=== PATIENT | female | born 1975 | race Caucasian/White ===

== ENCOUNTER 2019-01-28 08:07 | Observation (INO) | payer MEDICAID ==
[~2019-01-28] VITALS: Ht 154.9 cm; Wt 76.4 kg
[2019-01-28] VITALS (30 sets, daily range): BP systolic 74–111; BP diastolic 39–62; PULSE 56–94; RESP 10–20; Ht 154.9 cm; Wt 76.4 kg
[~2019-01-28 08:07] MED LIST: CEFAZOLIN 2 GM/50 ML (PMX) 50 ML IVPB SCH; LACTATED RINGER'S 1,000 ML IV ONE
[2019-01-28] MEDS ORDERED: ACETAMINOPHEN 500 MG TAB PO ONE (08:30)
[2019-01-28] MEDS ORDERED: LIDOCAINE 2% (SDV) 5 ML INJ ONE (09:45)
[2019-01-28] MEDS ORDERED: PROPOFOL 200 MG INJ ONE (09:45)
[2019-01-28] MEDS ORDERED: ROCURONIUM 50 MG INJ ONE (09:45)
[2019-01-28] MEDS ORDERED: DESFLURANE 15 MIN ONE (09:45)
[2019-01-28] MEDS ORDERED: FAMOTIDINE 20 MG INJ ONE (09:45)
[2019-01-28] MEDS ORDERED: MIDAZOLAM 1 MG/ML 2 ML INJ ONE (09:45)
[2019-01-28] MEDS ORDERED: FENTAnyl 50 MCG/ML VIAL ONE (09:46)
[2019-01-28] MEDS ORDERED: ONDANSETRON 4 MG INJ ONE (09:46)
[2019-01-28] MEDS ORDERED: MEPERIDINE 25 MG INJ IV PRN (10:00)
[2019-01-28] MEDS ORDERED: hydrALAzine 20 MG INJ IV PRN (10:00)
[2019-01-28] MEDS ORDERED: HYDROmorphONE 1 MG/5 ML IV SYRINGE IV PRN ×3 (10:00)
[2019-01-28] MEDS ORDERED: EPHEDrine 25 MG/5 ML SYG IV PRN (10:00)
[2019-01-28] MEDS ORDERED: DIPHENHYDRAMINE 50 MG INJ IV PRN (10:00)
[2019-01-28] MEDS ORDERED: LABETALOL HCL 20MG INJ IV PRN (10:00)
[2019-01-28] MEDS ORDERED: ALBUTEROL 0.083% (NEB) 2.5 MG/3 ML AMP HHN PRN (10:00)
[2019-01-28] MEDS ORDERED: ONDANSETRON 4 MG INJ IV PRN ×2 (10:00→12:30)
[2019-01-28] MEDS ORDERED: morphine 2 MG INJ IV PRN ×2 (10:00→12:30)
[2019-01-28] MEDS ORDERED: FENTAnyl 50 MCG/ML VIAL IV PRN ×2 (10:00)
[2019-01-28] MEDS ORDERED: OXYCODONE/ACETAMINOPHEN (5/325) TAB PO PRN ×2 (10:00)
[2019-01-28] MEDS ORDERED: BUPIVACAINE 0.5%/EPI (SDV) 10 ML INJ ONE (10:11)
[2019-01-28] MEDS ORDERED: ROPIVACAINE 0.5 % 30 ML VIAL ONE (11:00)
[2019-01-28] MEDS ORDERED: SUGAMMADEX SODIUM 200 MG/2 ML VIAL IV ONE (11:28)
[2019-01-28] MEDS ORDERED: DEXAMETHASONE 4 MG/ML 5 ML INJ ONE (11:28)
[2019-01-28] MEDS ORDERED: EPHEDrine 25 MG/5 ML SYG ONE (11:32)
[2019-01-28] MEDS ORDERED: KETOROLAC 30 MG INJ IV PRN (12:30)
[2019-01-28] MEDS: morphine 2 MG INJ IV PRN ×2 (13:06→13:20)
[2019-01-28] MEDS: HYDROCODONE/APAP (5/325) TAB PO PRN (23:40)
[2019-01-29 00:05] VITALS: BP 94/54; PULSE 96; RESP 17
[2019-01-29 08:02] VITALS: BP 100/53; PULSE 78; RESP 16
[2019-01-29] MEDS: HYDROCODONE/APAP (5/325) TAB PO PRN ×2 (08:35→13:09)
== END 2019-01-29 13:20 | disposition home or self-care (01) ==
LOC: SDS 08:07 → REC 15:35 → MS1 21:11
PROVIDERS: ADMIT Obstetrics & Gynecology; ATTEND Obstetrics & Gynecology
DX: Z30.2 Encounter for sterilization (principal)
CPT/HCPCS: 58600; 80053; 85025; 86850; 86900; 86901; 88302; 93005; J0690; J1100; J1885; J2250; J2270; J2405; J2795; J3010; Z7500; Z7512; Z7610; 99217; G0378